=== PATIENT | female | born 1965 | race Caucasian/White ===

== ENCOUNTER 2017-09-26 07:30 | Emergency (ER) | payer OTHER ==
[2017-09-26] MEDS ORDERED: ASPIRIN 81 MG TAB.CHEW ONE (07:49)
[2017-09-26] MEDS ORDERED: ASPIRIN 81 MG TAB.CHEW PO ONE ×2 (08:00→08:20)
[2017-09-26 08:05] LABS: BASO # 0.1 x10^3/uL (0.0-0.2); BASO % 2 % (0-3); EOS # 0.2 x10^3/uL (0.0-0.7); EOS % 5 % (0-3); HEMATOCRIT 42.5 % (36.0-47.0); HEMOGLOBIN 14.6 g/dL (12.0-15.5); LYMPH # 1.8 x10^3/uL (1.0-4.8); LYMPH % 37 % (24-48); MEAN CORPUSCULAR HEMOGLOBIN 29 pg (25-35); MEAN CORPUSCULAR HGB CONC 34 g/dL (31-37); MEAN CORPUSCULAR VOLUME 83 fL (79-100); MONO # 0.6 x10^3/uL (0.0-1.1); MONO % 12 % (0-9); NEUT # 2.1 x10^3uL (1.8-7.7); NEUT % 44 % (31-73); PLATELET COUNT 306 x10^3/uL (140-400); RED BLOOD COUNT 5.09 x10^6/uL (3.50-5.40); RED CELL DISTRIBUTION WIDTH 13.6 % (11.5-14.5); WHITE BLOOD COUNT 4.8 x10^3/uL (4.0-11.0)
--- NOTE | 2017-09-26 08:12 | PHYS DOC ---
Adult General Chief Complaint Chief Complaint: CHEST PAIN HPI HPI Patient is a 52-year-old female who drove herself to the ED with a complaint of chest pain. The patient was awake this morning drinking coffee and watching TV when she developed pain about 5:45 AM. The pain is on the left lateral aspect of her left breast and also goes down the medial aspect of her left upper arm. It is described as a tightness. She's never had this type of pain before. She does have a history of asthma and allergies, used her inhaler twice without relief. The pain does not worsen with breathing. She thinks it does worsen somewhat with movement of her body or movement of her left arm. She may have been a little sweaty. She may have had some nausea. After she noticed the pain it seemed to get worse and go into her left arm. She describes it as "tightening -tightening-tightening". She called her brother, who is a gas transfer operator, and he told her to come in and get checked out. She did take 2 low-dose aspirin at about 6:30 AM. Patient has no personal or family cardiac history. She personally has no history of hypertension or diabetes. She has smoked in the past but quit. She was told in the past that she had "very high cholesterol" but I'm unclear the result, she got checked out and was told she was fine later and has not been on any medication for that. Daily medications are Nexium, pro-air, methadone 10 mg twice a day, Motrin 800 mg about twice a day. She had right shoulder surgery in March and that's why she's taking the Motrin. Patient has had a cervical laminectomy along time ago and has been taking methadone for pain for a long time. She used to take 6 pills a day but is down to 2, she is stepping down slowly with the intention of getting off of methadone. Her last dose was at 6 PM last night. She has not taken it yet this morning. Patient does not work outside the home. Her is a contractor [facility] and is currently there. PCP Kiko Castillo Review of Systems Review of Systems Constitutional: Denies fever or chills [] HENT: Denies nasal congestion Respiratory: As in history of present illness Cardiovascular: As in history of present illness GI: Denies abdominal pain : Denies , she has had a hysterectomy Musculoskeletal: Right shoulder surgery in March, still takes Motrin for that Integument: Denies rash Neurologic: Denies headache, focal weakness or sensory changes [] Current Medications Current Medications Current Medications Medications (Trade) Dose Ordered Sig/Silvana Start Time Stop Time Status Last Admin Dose Admin Aspirin (Children'S Aspirin) 162 mg 1X ONCE 09/26/17 08:00 09/26/17 08:01 UNV Allergies Allergies Allergies Coded Allergies Type Severity Reaction Last Updated Verified Penicillins Allergy Unknown 09/26/17 Yes Physical Exam Physical Exam Constitutional: Well developed, well nourished, no acute distress, non-toxic appearance. Alert, mentating normally, vital signs stable. HENT: Normocephalic, atraumatic, bilateral external ears normal, oropharynx moist, no oral exudates, nose normal. [] Eyes: conjunctiva normal, no discharge. [] Neck: Normal range of motion, no stridor. [] Cardiovascular:Heart rate regular rhythm, no murmur [] Lungs & Thorax: Bilateral breath sounds clear to auscultation without wheezes, good air movement throughout bilaterally. Abdomen: Bowel sounds normal, soft, no tenderness, no masses, no pulsatile masses. [] Skin: Warm, dry, no erythema, no rash. [] Back: No tenderness, no CVA tenderness. [] Extremities: no cyanosis, no clubbing, ROM intact, no edema. [] Neurologic: Alert and oriented X 3, normal motor function, no focal deficits noted. [] EKG EKG 12-lead EKG read by me. Sinus rhythm. Heart rate 84. There are no ST elevations or depressions. There is nonspecific T-wave inversion in lead 3. There are no acute ST or T wave changes indicative of ischemia or infarction. Nonspecific T- wave abnormality. No STEMI. [id number][] Radiology/Procedures Radiology/Procedures [] Course & Med Decision Making Course & Med Decision Making Pertinent Labs and Imaging studies reviewed. (See chart for details) 52-year-old female presents ambulatory to the ED with left-sided chest and left upper arm pain for almost 2 hours characterized as "tightening". Patient does not have cardiac history. Cardiac risk factors include a history of "very high cholesterol" and a history of smoking. Initial EKG has some nonspecific T wave change but no STEMI. The patient took 2 low-dose aspirin at home, she was given 2 more on arrival to the ED. I advised the patient that we need to do a chest x-ray and some lab studies in addition to the EKG, but advised the patient that we will not be able in the emergency department to completely clear her as far as cardiac etiology of the pain. We discussed that my recommendation will be for admission to the hospital for further evaluation including serial enzymes, possible further testing and possible cardiology consultation. The patient immediately stated that she will not be able to be admitted to the hospital, she has animals at home and no one there to take care of them. At this time I asked the patient to just relax while we completed some testing and I will visit with her about those test results. She is comfortable with that plan. Labs, chest x-ray are unremarkable. I discussed with the patient that ED testing is normal but does not rule out cardiac ischemia or coronary artery disease. I told her I recommend that she be admitted to the hospital for serial cardiac enzymes and further cardiac evaluation. Patient states she will talk to her family and consider her options. Patient's daughter arrived and was visiting with the patient in the room. I stopped by to check in to see if the patient had made a decision. The patient's daughter stated to me "I'm concerned because I have friends who had similar symptoms, they checked them out and they were okay, and then they ended up having a heart attack". I reassured the daughter that in fact my recommendation is not to release her mother but I then went over my recommendation for admission to the hospital with the daughter present in the room. It appears to me that the patient had minimized my recommendation and that the daughter had actually gotten the impression that the patient was going to be released. I told the patient that I am going to ask her to sign out AGAINST MEDICAL ADVICE if she does decide to leave simply because it's my advice that she be admitted for the reasons discussed, the patient states she understands that "I've done it before". Patient discussed with her daughter some more and then called me into the room and said that she is going to leave. I reiterated to the patient that she is welcome to return at any time and certainly should return if her symptoms change or worsen, she understands that and agrees. See instructions for plan. [] Dragon Disclaimer Dragon Disclaimer This electronic medical record was generated, in whole or in part, using a voice recognition dictation system. Departure Departure: Impression: Primary Impression: Left sided chest pain Additional Impression: History of smoking Disposition: AGAINST MEDICAL ADVICE Condition: STABLE Referrals: KIKO CASTILLO (PCP) Patient Instructions: Chest Pain (Nonspecific), [id number], Discharge Against Medical Advice Additional Instructions: At this time, I recommend that you take 1 full strength aspirin a day until you are advised otherwise by your primary care doctor or piercer operator. This is just a temporary measure until we are able to complete your cardiac workup. Make an appointment as soon as possible to see your primary care provider. Discuss your symptoms with her so that she can recommend further testing. I do recommend further cardiac testing of some kind such as a stress test or nuclear study. If your symptoms worsen, return to emergency at any time. Although you're leaving AGAINST MEDICAL ADVICE, you are urged to return immediately if you reconsider and we can admit you at that time. I do recommend that you be admitted to the hospital for 2 more blood draws to check cardiac enzymes, and then some further cardiac testing, probably a nuclear study, and possibly to see the piercer operator. This is standard workup for a patient who is having chest pain of unknown cause who might have some risk factors for heart disease. Problem Qualifiers AIMEE PULIDO MD Sep 26, 2017 08:12
--- NOTE | 2017-09-26 08:21 | RAD ---
Chest radiograph 09/26/2017 9:53 AM Indication: Left-sided chest pain Comparison: None available Technique: Single portable upright frontal view of the chest is provided. Findings: Cardiomediastinal silhouette is within normal limits. No pleural effusions, pulmonary vascular congestion or pneumothorax. The lungs are clear. Calcified granuloma is identified in the left midlung. Osseous structures are normal. Impression: No acute cardiopulmonary process.
[2017-09-26 08:25] LABS: ALBUMIN 4.1 g/dL (3.4-5.0); ALBUMIN/GLOBULIN RATIO 1.3 (1.0-1.7); CALCIUM 9.1 mg/dL (8.5-10.1); CREATININE 0.7 mg/dL (0.6-1.0); GFR 88.2; POTASSIUM 3.7 mmol/L (3.5-5.1); TOTAL BILIRUBIN 0.4 mg/dL (0.2-1.0); TOTAL PROTEIN 7.3 g/dL (6.4-8.2)
[2017-09-26 09:45] VITALS: BP 155/85
--- NOTE | 2017-09-26 15:38 | EKG ---
[address] [address] Test Date: 2017-09-26 Test Time: 07:37:16 Pat Name: CAREN BAR Department: Room: Gender: F Burning Supervisor: ALEXI : 1965 Requested By: AIMEE PULIDO Order Number: [id number] Reading MD: Measurements Intervals Brooks Rate: 84 P: -26 TN: 92 QRS: 152 QRSD: 78 T: -22 QT: 378 QTc: 450 Interpretive Statements SINUS RHYTHM ABNORMAL RIGHT AXIS DEVIATION R-S TRANSITION ZONE IN V LEADS DISPLACED TO THE LEFT LOW LIMB LEAD VOLTAGE QRS(T) CONTOUR ABNORMALITY CONSISTENT WITH HIGH LATERAL INFARCT PROBABLY OLD ABNORMAL ECG RI6.01 No previous ECG available for comparison
== END 2017-09-26 09:50 | disposition left against medical advice (07) ==
LOC: ER 07:30
DX: R07.89 Other chest pain (principal); M79.602 Pain in left arm; J45.909 Unspecified asthma, uncomplicated; Z87.891 Personal history of nicotine dependence; Z88.0 Allergy status to penicillin
CPT/HCPCS: 36415; 71045; 80053; 82553; 83880; 84484; 85025; 93005; 99285-25

== ENCOUNTER → 2018-04-12 | Outpatient (CLI) | payer OTHER ==
--- NOTE | 2018-04-12 15:02 | RAD ---
EXAM: Abdomen and pelvis CT without intravenous contrast. HISTORY: Left lower quadrant pain. TECHNIQUE: Computed tomographic images of the abdomen and pelvis were obtained without contrast. Multiplanar reformatting was performed. *One or more of the following individualized dose reduction techniques were utilized for this examination: 1. Automated exposure control. 2. Adjustment of the mA and/or kV according to patient size. 3. Use of iterative reconstruction technique. COMPARISON: None. FINDINGS: Evaluation of the lower thorax is unremarkable. There is fatty infiltration of the liver along the falciform ligament. There is slight increased density within the dependent portions the gallbladder likely due to artifact. No convincing gallstone is seen. The pancreas, spleen and adrenal glands are unremarkable. The kidneys are unremarkable. There is no appendicitis. There are few colonic diverticula. There is no evidence of diverticulitis. There is no bowel obstruction. There is suspected slight pelvic floor relaxation. The uterus is surgically absent. There is no lymphadenopathy. There is no suspicious osseous lesion. There is a tiny fat-containing umbilical hernia. No suspicious osseous lesion is seen. IMPRESSION: No acute abdominal or pelvic finding. Electronically signed by: Charla Nur MD (04/12/2018 2:58 PM) [place] [id number]
== END | disposition home or self-care (01) ==
LOC: CT 14:38
PROVIDERS: ATTEND Physician Assistant Medical
DX: K57.30 Diverticulosis of large intestine without perforation or abscess without bleeding (principal); K76.0 Fatty (change of) liver, not elsewhere classified; J45.909 Unspecified asthma, uncomplicated; Z87.891 Personal history of nicotine dependence; Z88.0 Allergy status to penicillin
CPT/HCPCS: 74176

== ENCOUNTER → 2019-10-14 | Outpatient (CLI) | payer OTHER ==
--- NOTE | 2019-10-14 09:59 | RAD ---
CHEST PA LATERAL History: Chest congestion Comparison: 10/06/2017 AP view of the chest. Findings: Frontal and lateral views of the chest were obtained. The cardiomediastinal silhouette is normal. Pulmonary vasculature is normal. The lungs are clear. No pleural effusion or pneumothorax is seen. There is no acute bone abnormality. IMPRESSION: No acute cardiopulmonary process. Electronically signed by: Dutch Baeza MD (10/14/2019 9:57 AM) [id number]
== END | disposition home or self-care (01) ==
LOC: DXRAD 09:38
PROVIDERS: ATTEND Physician Assistant Medical
DX: R09.89 Other specified symptoms and signs involving the circulatory and respiratory systems (principal)
CPT/HCPCS: 71046

== ENCOUNTER → 2019-10-24 | Outpatient (CLI) | payer OTHER ==
--- NOTE | 2019-10-24 13:40 | RAD ---
Noncontrast CT scan of the chest compared to chest x-ray dated October [id number] for persistent cough. TECHNIQUE: Contiguous helical 3 mm axial images are obtained from the thoracic inlet to the base of the diaphragm. Sagittal and coronal reformations are evaluated. FINDINGS: No suspicious mediastinal, hilar, or axillary lymphadenopathy. Heart size within normal limits. No significant coronary artery calcifications. Minimal aortic calcifications. Central airways are patent. Evaluation of the upper abdominal organs is limited by lack of IV contrast, with no gross morphologic abnormalities identified.No suspicious osteoblastic or osteolytic bone lesions. No focal parenchymal abnormalities are identified. No suspicious lung nodules or masses. No pleural effusions. IMPRESSION: 1. No discernible acute cardiopulmonary abnormalities. Para PQRS Compliance Statement: One or more of the following individualized dose reduction techniques were utilized for this examination: 1. Automated exposure control 2. Adjustment of the mA and/or kV according to patient size 3. Use of iterative reconstruction technique Electronically signed by: Delgado Lee MD (10/24/2019 1:38 PM) [id number]
== END ==
LOC: CT 13:08
PROVIDERS: ATTEND Physician Assistant Medical
DX: R05 Cough (principal); I70.0 Atherosclerosis of aorta
CPT/HCPCS: 71250